=== PATIENT | male | born 1935 | race Caucasian/White ===

== ENCOUNTER 2021-05-04 15:00 | Emergency (ER) | payer MEDICARE, BC ==
[2021-05-04 15:36] LABS: CHLORIDE,CL 97 mEq/L (98-106); SODIUM,NA 140 mEq/L (136-145)
[2021-05-04] MEDS: Diphtheria,Pertussis(Acell),Tetanus Vaccine 0.5 ML Syringe IM ONE (17:19)
[2021-05-04] MEDS: Phytonadione 10 MG in Sodium Chloride 0.9% 50 ML IV ONE (17:21)
[2021-05-04] MEDS: HYDROmorphone 1 MG/ML Syringe IVPUSH PRN (17:21)
[2021-05-04] MEDS: Ondansetron 4 MG/2 ML SDV IVPUSH PRN (17:29)
[2021-05-04] MEDS: Sodium Chloride 0.9% 500 ML IV SCH (17:30)
== END 2021-05-04 17:55 ==
LOC: CC.ED 15:00
DX: S72.001A Fracture of unspecified part of neck of right femur, initial encounter for closed fracture (principal); R79.1 Abnormal coagulation profile; N17.9 Acute kidney failure, unspecified; M62.82 Rhabdomyolysis; I10 Essential (primary) hypertension; Z79.899 Other long term (current) drug therapy; Z20.822 Contact with and (suspected) exposure to COVID-19; Z79.01 Long term (current) use of anticoagulants; Z23 Encounter for immunization; W18.09XA Striking against other object with subsequent fall, initial encounter; Y92.009 Unspecified place in unspecified non-institutional (private) residence as the place of occurrence of the external cause
CPT/HCPCS: 36415; 51702; 70450; 71250; 80053; 81001; 82550; 84484; 85025; 85610; 86140; 90471; 90715; 93005; 96372; 96374; 96375; 99285-25; J1170; J2405; J3430; J7040; U0002